=== PATIENT | male | born 1930 | race Caucasian/White ===

== ENCOUNTER → 2016-12-25 | Outpatient (CLI) | payer MEDICARE, OTHER ==
[~2016-12-25] MED LIST: ALDACTONE 25MG25 M1 PO; ASPIRIN E.C. 8181 MG PO; COREG 3.123.125 MG/T PO; COREG12.5 MG PO; COZAAR 25MG25 MG/TAB PO; DULCOLAX10 MG RC; ELIQUIS 2.5 PO; FOLIC ACID0.4 MG PO; IRON TABLETS325 MG PO; IRON324 M1 PO; K-DUR 10 MEQ T10 MEQ PO; LASIX 20MG TABL20 MG PO; LASIX 40MG TABL40 MG PO; LEVAQUIN 5500 MG/TA1 PO; LIPITOR 10MG10 MG PO; LIPITOR 40MG TA40 MG PO; MAALOX PLUS 3030 ML PO; MILK OF MA400 MG/52 PO; NIACIN100 M1 PO; NORCO 325 MG-7.1 TAB PO; NORVASC 5MG5 MG/TAB PO; PRINIVIL20 MG PO; ROCEPHIN1 GM IV; SEN-O-TABS8.6 MG PO; SERAX 15MG15 MG/CAP PO; TYLENOL 325MG325 MG PO; VITAMIN C500 MG PO; XARELTO10 MG PO
== END ==
LOC: COL.VAS 14:01
DX: I08.3 Combined rheumatic disorders of mitral, aortic and tricuspid valves (principal); R94.39 Abnormal result of other cardiovascular function study; I10 Essential (primary) hypertension; I48.91 Unspecified atrial fibrillation

== ENCOUNTER 2017-01-23 19:56 | Emergency (ER) | payer MEDICARE, OTHER ==
[~2017-01-23] VITALS: Ht 182.9 cm; Wt 100.0 kg
[~2017-01-23 19:56] MED LIST changes: -ALDACTONE 25MG25 M1 PO; -ASPIRIN E.C. 8181 MG PO; -COREG 3.123.125 MG/T PO; -COREG12.5 MG PO; -COZAAR 25MG25 MG/TAB PO; -ELIQUIS 2.5 PO; -K-DUR 10 MEQ T10 MEQ PO; -LASIX 20MG TABL20 MG PO; -LASIX 40MG TABL40 MG PO; -LEVAQUIN 5500 MG/TA1 PO; -LIPITOR 10MG10 MG PO; -LIPITOR 40MG TA40 MG PO; -NORVASC 5MG5 MG/TAB PO; -PRINIVIL20 MG PO
[2017-01-23 19:58] VITALS: TEMP 96.9
[2017-01-23 20:31] LABS: BASO % 0.5 % (0.0-2.0); EOS # 0.1 (0.0-0.7); GRAN # 6.6 (1.4-6.5); GRAN % 79.9 % (42.2-75.2); HEMOGLOBIN 14.5 g/dl (13.5-18.0); LYMPH # 0.6 (1.2-3.4); LYMPH % 7.3 % (20.0-51.0); MEAN CELL VOLUME 92 fl (80.0-100.0); MEAN CORPUSCULAR HEMOGLOBIN 31 pg (27.0-31.0); MEAN CORPUSCULAR HGB CONC 33 g/dl (33.0-37.0); MEAN PLATELET VOLUME 10.3 fl (7.4-10.4); MONO # 0.9 (0.1-0.6); MONO % 11.1 % (1.7-9.3); PLATELET COUNT 173 K/mm3 (130-400); RED BLOOD COUNT 4.76 M/mm3 (4.20-5.60); REDCELL DISTRIBUTION WIDTH-CV 15.7 % (11.5-14.5); WHITE BLOOD COUNT 8.3 K/mm3 (4.8-10.8)
[2017-01-23 20:36] LABS: INR 1.3 (0.8-3.0); PROTHROMBIN TIME 14.2 SECONDS (9.7-12.8)
[2017-01-23 20:43] LABS: ADJUSTED CALCIUM 9.2 mg/dL (8.4-10.2); ALANINE AMINOTRANSFERASE 45 U/L (21-72); ALKALINE PHOSPHATASE 87 U/L (50-136); ANION GAP 13 mmol/L (7-16); BILIRUBIN,TOTAL 1.3 mg/dL (0.0-1.0); BLOOD UREA NITROGEN 35 mg/dL (9-20); CALCIUM 9.2 mg/dL (8.4-10.2); CARBON DIOXIDE 26 mmol/L (22-30); CHLORIDE 96 mmol/L (98-107); CREATINE KINASE 43 U/L (55-170); CREATININE, serum 1.66 mg/dL (0.66-1.25); GLUCOSE 102 mg/dL (74-106); POTASSIUM 4.7 mmol/L (3.4-5.0); SODIUM 135 mmol/L (137-145); TOTAL PROTEIN 7.3 gm/dL (6.4-8.2)
[2017-01-23 20:55] LABS: B-TYPE NATRIURETIC PEPTIDE 15500 pg/mL (0-450); TROPONIN-I < 0.012 ng/mL (0.000-0.034)
[2017-01-23] MEDS ORDERED: ALDACTONE 25MG25 M1 PO (20:56)
[2017-01-23] MEDS ORDERED: COREG 3.123.125 MG/T PO (20:57)
[2017-01-23] MEDS ORDERED: ELIQUIS 2.5 PO (20:57)
[2017-01-23] MEDS ORDERED: ASPIRIN E.C. 8181 MG PO (20:57)
[2017-01-23] MEDS ORDERED: LASIX 20MG TABL20 MG PO (20:59)
[2017-01-23] MEDS ORDERED: PRINIVIL20 MG PO (20:59)
[2017-01-23 21:34] VITALS: BP 130/97; PULSE 78
== END 2017-01-23 21:35 | disposition home or self-care (01) ==
LOC: COL.ER 19:56
PROVIDERS: Emergency Medicine
DX: R07.9 Chest pain, unspecified (principal); I10 Essential (primary) hypertension; I25.10 Atherosclerotic heart disease of native coronary artery without angina pectoris

== ENCOUNTER 2017-01-29 07:35 | Day surgery (SDC) | payer MEDICARE, OTHER ==
[2017-01-29] VITALS (8 sets, daily range): BP systolic 122–148; BP diastolic 89–101; PULSE 73–97; TEMP 98.1
[~2017-01-29] VITALS: Ht 182.9 cm; Wt 102.2 kg
[~2017-01-29 07:35] MED LIST changes: +ALDACTONE 25MG25 M1 PO; +ASPIRIN E.C. 8181 MG PO; +COREG 3.123.125 MG/T PO; +ELIQUIS 2.5 PO; +LASIX 20MG TABL20 MG PO; +PRINIVIL20 MG PO
[2017-01-29 08:31] LABS: HEMATOCRIT 44.3 % (42.0-52.0); HEMOGLOBIN 14.6 g/dl (13.5-18.0); MEAN CELL VOLUME 91 fl (80.0-100.0); MEAN CORPUSCULAR HEMOGLOBIN 30 pg (27.0-31.0); MEAN CORPUSCULAR HGB CONC 33 g/dl (33.0-37.0); MEAN PLATELET VOLUME 10.1 fl (7.4-10.4); PLATELET COUNT 178 K/mm3 (130-400); RED BLOOD COUNT 4.87 M/mm3 (4.20-5.60); REDCELL DISTRIBUTION WIDTH-CV 15.7 % (11.5-14.5); WHITE BLOOD COUNT 4.7 K/mm3 (4.8-10.8)
[2017-01-29 08:33] LABS: INR 1.2 (0.8-3.0); PROTHROMBIN TIME 12.8 SECONDS (9.7-12.8)
[2017-01-29 08:39] LABS: CALCIUM 9.2 mg/dL (8.4-10.2); CREATININE, serum 1.83 mg/dL (0.66-1.25); POTASSIUM 4.5 mmol/L (3.4-5.0)
[2017-01-29] MEDS ORDERED: NORVASC 5MG5 MG/TAB PO (12:07)
[2017-01-29] MEDS ORDERED: LIPITOR 10MG10 MG PO (12:09)
== END 2017-01-29 15:41 | disposition home or self-care (01) ==
LOC: EUO 07:35
PROVIDERS: Internal Medicine Cardiovascular Disease
DX: I25.10 Atherosclerotic heart disease of native coronary artery without angina pectoris (principal); R94.39 Abnormal result of other cardiovascular function study; I12.9 Hypertensive chronic kidney disease with stage 1 through stage 4 chronic kidney disease, or unspecified chronic kidney disease; N18.9 Chronic kidney disease, unspecified; E78.2 Mixed hyperlipidemia; I25.5 Ischemic cardiomyopathy
CPT/HCPCS: C1760; J1940; J2250; J3010; Q9967

== ENCOUNTER → 2017-01-30 | Outpatient (CLI) | payer MEDICARE, OTHER ==
[~2017-01-30] MED LIST changes: +COREG12.5 MG PO; +COZAAR 25MG25 MG/TAB PO; +K-DUR 10 MEQ T10 MEQ PO; +LASIX 40MG TABL40 MG PO; +LEVAQUIN 5500 MG/TA1 PO; +LIPITOR 10MG10 MG PO; +LIPITOR 40MG TA40 MG PO; +NORVASC 5MG5 MG/TAB PO
== END ==
LOC: COL.LAB 15:51
DX: R06.02 Shortness of breath (principal)

== ENCOUNTER 2017-05-04 14:23 | Outpatient (RCR) | payer MEDICARE, OTHER ==
[~2017-05-04 14:23] MED LIST changes: -COREG12.5 MG PO; -COZAAR 25MG25 MG/TAB PO; -K-DUR 10 MEQ T10 MEQ PO; -LASIX 40MG TABL40 MG PO; -LEVAQUIN 5500 MG/TA1 PO; -LIPITOR 40MG TA40 MG PO
== END 2017-05-08 14:24 | disposition home or self-care (01) ==
LOC: COL.CR 14:23
DX: Z48.812 Encounter for surgical aftercare following surgery on the circulatory system (principal); I50.9 Heart failure, unspecified; I20.9 Angina pectoris, unspecified

== ENCOUNTER 2017-06-24 11:44 | Inpatient (IN) | payer MEDICARE, OTHER ==
[~2017-06-24] VITALS: Ht 182.9 cm; Wt 91.5 kg
[2017-06-24 12:20] LABS: VENOUS BLOOD GAS BE -3.1 (-4-4); VENOUS BLOOD GAS SAO2 19.6 % (60-80)
[2017-06-24 12:22] LABS: VENOUS BLOOD GAS SITE VENIPUNCTURE
[2017-06-24 12:30] LABS: BASO # 0.1 (0.0-0.2); BASO % 0.6 % (0.0-2.0); EOS # 0.1 (0.0-0.7); EOS % 0.7 % (0-4.0); GRAN # 7.7 (1.4-6.5); GRAN % 77.7 % (42.2-75.2); HEMATOCRIT 43.4 % (42.0-52.0); LYMPH % 10.5 % (20.0-51.0); MEAN CELL VOLUME 96 fl (80.0-100.0); MEAN CORPUSCULAR HEMOGLOBIN 31 pg (27.0-31.0); MEAN CORPUSCULAR HGB CONC 32 g/dl (33.0-37.0); MEAN PLATELET VOLUME 10.2 fl (7.4-10.4); MONO % 9.8 % (1.7-9.3); PLATELET COUNT 241 K/mm3 (130-400); REDCELL DISTRIBUTION WIDTH-CV 14.5 % (11.5-14.5); WHITE BLOOD COUNT 9.9 K/mm3 (4.8-10.8)
[2017-06-24 12:33] LABS: ADJUSTED CALCIUM 8.9 mg/dL (8.4-10.2); ALANINE AMINOTRANSFERASE 62 U/L (21-72); ALBUMIN 4.1 gm/dL (3.5-5.0); ALKALINE PHOSPHATASE 127 U/L (50-136); ANION GAP 12 mmol/L (7-16); BILIRUBIN,TOTAL 0.9 mg/dL (0.0-1.0); BLOOD UREA NITROGEN 25 mg/dL (9-20); CARBON DIOXIDE 21 mmol/L (22-30); CHLORIDE 99 mmol/L (98-107); CREATININE, serum 1.44 mg/dL (0.66-1.25); GLUCOSE 119 mg/dL (74-106); LIPASE 55 U/L (23-300); POTASSIUM 4.8 mmol/L (3.4-5.0); SODIUM 133 mmol/L (137-145); TOTAL PROTEIN 7.5 gm/dL (6.4-8.2)
[2017-06-24 12:34] LABS: INR 1.4 (0.8-3.0)
[2017-06-24] MEDS ORDERED: LASIX 40MG TABL40 MG PO (12:41)
[2017-06-24] MEDS ORDERED: LIPITOR 40MG TA40 MG PO (12:43)
[2017-06-24 12:45] LABS: B-TYPE NATRIURETIC PEPTIDE 28300 pg/mL (0-450)
[2017-06-24] MEDS ORDERED: COZAAR 25MG25 MG/TAB PO (12:45)
[2017-06-24 12:47] LABS: TROPONIN-I < 0.012 ng/mL (0.000-0.034)
[2017-06-24] MEDS ORDERED: LEVAQUIN 5500 MG/TA1 PO (14:13)
[2017-06-24 15:08] VITALS: BP 150/113; PULSE 87; TEMP 97.5
[2017-06-24 15:50] LABS: PH 5 (5-8); SQUAMOUS EPITHELIAL None Seen /hpf; URINE APPEARANCE Clear; URINE BACTERIA None Seen /hpf; URINE BILIRUBIN Negative (NEGATIVE); URINE BLOOD 1+ (NEGATIVE); URINE COLOR Straw; URINE GLUCOSE Negative (NEGATIVE); URINE KETONE Negative (NEGATIVE); URINE RBC 0-2 /hpf; URINE UROBILINOGEN Negative (NEGATIVE); URINE WBC 0-2 /hpf
[2017-06-24 16:22] VITALS: BP 153/98; PULSE 110; TEMP 97.9
[2017-06-24 19:49] VITALS: BP 100/61; PULSE 87; TEMP 97
[2017-06-24 23:33] VITALS: BP 103/59; PULSE 66; TEMP 97.5
[2017-06-25 03:31] VITALS: BP 113/62; PULSE 75; TEMP 97.4
[2017-06-25 07:24] LABS: BASO # 0.1 (0.0-0.2); EOS # 0.4 (0.0-0.7); EOS % 4.1 % (0-4.0); GRAN # 6.2 (1.4-6.5); GRAN % 67.2 % (42.2-75.2); HEMATOCRIT 37.9 % (42.0-52.0); HEMOGLOBIN 12.6 g/dl (13.5-18.0); LYMPH # 1.4 (1.2-3.4); LYMPH % 15.1 % (20.0-51.0); MEAN CELL VOLUME 94 fl (80.0-100.0); MEAN CORPUSCULAR HEMOGLOBIN 31 pg (27.0-31.0); MEAN CORPUSCULAR HGB CONC 33 g/dl (33.0-37.0); MEAN PLATELET VOLUME 9.8 fl (7.4-10.4); MONO # 1.1 (0.1-0.6); MONO % 12.2 % (1.7-9.3); PLATELET COUNT 211 K/mm3 (130-400); RED BLOOD COUNT 4.04 M/mm3 (4.20-5.60); REDCELL DISTRIBUTION WIDTH-CV 14.5 % (11.5-14.5); WHITE BLOOD COUNT 9.2 K/mm3 (4.8-10.8)
[2017-06-25 07:43] LABS: CALCIUM 8.6 mg/dL (8.4-10.2); CREATININE, serum 1.62 mg/dL (0.66-1.25); MAGNESIUM 2.1 mg/dL (1.6-2.3); POTASSIUM 4.1 mmol/L (3.4-5.0)
[2017-06-25 08:15] VITALS: BP 110/56; PULSE 74; TEMP 97.8
[2017-06-25 11:10] VITALS: BP 102/67; PULSE 93; TEMP 97.7
[2017-06-25 15:14] VITALS: BP 113/66; PULSE 47; TEMP 97.9
[2017-06-25 20:43] VITALS: BP 90/51; PULSE 74; TEMP 97.5
[2017-06-26] VITALS (8 sets, daily range): BP systolic 87–117; BP diastolic 41–66; PULSE 68–95; TEMP 97.8–98.7
[2017-06-26 06:57] LABS: BASO # 0.1 (0.0-0.2); BASO % 0.8 % (0.0-2.0); EOS # 0.6 (0.0-0.7); EOS % 6.7 % (0-4.0); GRAN # 5.6 (1.4-6.5); GRAN % 66.1 % (42.2-75.2); HEMATOCRIT 37.2 % (42.0-52.0); HEMOGLOBIN 12.1 g/dl (13.5-18.0); LYMPH # 1.1 (1.2-3.4); LYMPH % 12.5 % (20.0-51.0); MEAN CELL VOLUME 94 fl (80.0-100.0); MEAN CORPUSCULAR HEMOGLOBIN 31 pg (27.0-31.0); MEAN CORPUSCULAR HGB CONC 33 g/dl (33.0-37.0); MEAN PLATELET VOLUME 10.1 fl (7.4-10.4); MONO # 1.1 (0.1-0.6); MONO % 13.4 % (1.7-9.3); PLATELET COUNT 216 K/mm3 (130-400); RED BLOOD COUNT 3.95 M/mm3 (4.20-5.60); REDCELL DISTRIBUTION WIDTH-CV 14.6 % (11.5-14.5); WHITE BLOOD COUNT 8.5 K/mm3 (4.8-10.8)
[2017-06-26 07:13] LABS: CALCIUM 8.4 mg/dL (8.4-10.2); CREATININE, serum 1.88 mg/dL (0.66-1.25); MAGNESIUM 2.1 mg/dL (1.6-2.3)
[2017-06-27 02:43] VITALS: BP 88/60; PULSE 70; TEMP 98.7
[2017-06-27 07:14] LABS: BASO # 0.1 (0.0-0.2); BASO % 0.6 % (0.0-2.0); EOS # 1.1 (0.0-0.7); EOS % 13.4 % (0-4.0); GRAN # 4.7 (1.4-6.5); GRAN % 57.9 % (42.2-75.2); HEMATOCRIT 37.1 % (42.0-52.0); HEMOGLOBIN 12.3 g/dl (13.5-18.0); LYMPH # 1.1 (1.2-3.4); LYMPH % 13.4 % (20.0-51.0); MEAN CELL VOLUME 95 fl (80.0-100.0); MEAN CORPUSCULAR HEMOGLOBIN 31 pg (27.0-31.0); MEAN CORPUSCULAR HGB CONC 33 g/dl (33.0-37.0); MEAN PLATELET VOLUME 10.2 fl (7.4-10.4); MONO # 1.2 (0.1-0.6); MONO % 14.2 % (1.7-9.3); PLATELET COUNT 195 K/mm3 (130-400); RED BLOOD COUNT 3.92 M/mm3 (4.20-5.60); REDCELL DISTRIBUTION WIDTH-CV 14.8 % (11.5-14.5); WHITE BLOOD COUNT 8.1 K/mm3 (4.8-10.8)
[2017-06-27 07:20] LABS: CALCIUM 8.1 mg/dL (8.4-10.2); CREATININE, serum 1.65 mg/dL (0.66-1.25); POTASSIUM 4.5 mmol/L (3.4-5.0)
[2017-06-27 10:28] VITALS: BP 93/53; PULSE 91; TEMP 97.3
[2017-06-27 12:12] VITALS: BP 101/58; PULSE 73; TEMP 97.1
[2017-06-27 17:29] VITALS: BP 92/55; PULSE 70; TEMP 98.1
[2017-06-27 19:49] VITALS: BP 121/67; PULSE 91; TEMP 97.5
[2017-06-27 23:54] VITALS: BP 112/59; PULSE 68; TEMP 97.8
[2017-06-28 02:27] VITALS: BP 112/75; PULSE 81; TEMP 97.8
[2017-06-28 08:00] VITALS: BP 121/49; PULSE 83; TEMP 97.9
[2017-06-28 12:24] VITALS: BP 95/57; PULSE 82; TEMP 97.5
[2017-06-28 16:59] VITALS: BP 114/74; PULSE 65; TEMP 97.3
[2017-06-28 20:45] VITALS: BP 117/64; PULSE 71; TEMP 97.5
[2017-06-29 00:40] VITALS: BP 105/55; PULSE 75; TEMP 97.8
[2017-06-29 04:33] VITALS: BP 102/51; PULSE 76; TEMP 97.9
[2017-06-29 07:02] LABS: CALCIUM 8.4 mg/dL (8.4-10.2); CREATININE, serum 1.49 mg/dL (0.66-1.25); MAGNESIUM 2.5 mg/dL (1.6-2.3); POTASSIUM 4.6 mmol/L (3.4-5.0)
[2017-06-29 07:22] VITALS: BP 113/83; PULSE 79; TEMP 97.8
[2017-06-29] MEDS ORDERED: ELIQUIS 2.5 PO (10:03)
[2017-06-29] MEDS ORDERED: LASIX 40MG TABL40 MG PO (10:04)
[2017-06-29] MEDS ORDERED: COREG12.5 MG PO (10:04)
[2017-06-29] MEDS ORDERED: K-DUR 10 MEQ T10 MEQ PO (10:04)
[2017-06-29 12:27] VITALS: BP 104/56; PULSE 70; TEMP 97.8
== END 2017-06-29 14:08 | disposition home or self-care (01) | DRG 291 ==
LOC: COL.ER 11:44 → MEDICAL 13:23
PROVIDERS: Emergency Medicine; Internal Medicine; Physician Assistant
DX: I13.0 Hypertensive heart and chronic kidney disease with heart failure and stage 1 through stage 4 chronic kidney disease, or unspecified chronic kidney disease (principal); I50.23 Acute on chronic systolic (congestive) heart failure; N39.0 Urinary tract infection, site not specified; I48.2 Chronic atrial fibrillation; I25.5 Ischemic cardiomyopathy; E78.5 Hyperlipidemia, unspecified; D64.9 Anemia, unspecified; R33.9 Retention of urine, unspecified; I12.9 Hypertensive chronic kidney disease with stage 1 through stage 4 chronic kidney disease, or unspecified chronic kidney disease; N18.9 Chronic kidney disease, unspecified; R53.81 Other malaise
CPT/HCPCS: 99222-AI; 99232-AI; 99233-AI; 99239; J0360; J1650; J1940; J7060